=== PATIENT | male | born 2000 | race Caucasian/White ===

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

== ENCOUNTER 2020-05-15 13:34 | Emergency (ER) | payer MEDICAID ==
[~2020-05-15] VITALS: Ht 165.1 cm; Wt 66.2 kg
[2020-05-15 13:37] VITALS: BP 96/64
--- NOTE | 2020-05-15 13:40 | NUR ---
PT AMBULATED TO ER BED 11 WITH A STEADY GAIT.
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
--- NOTE | 2020-05-15 14:10 | NUR ---
DR WEST AT BEDSIDE FOR EVALUATION
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
--- NOTE | 2020-05-15 14:55 | NUR ---
PT BROUGHT BACK FROM CT VIA [facility].
[2020-05-15 15:15] VITALS: BP 96/64
--- NOTE | 2020-05-15 15:16 | NUR ---
Patient discharged with v/s stable. Written and verbal after care instructions given and explained. Patient alert, oriented and verbalized understanding of instructions. Ambulatory with steady gait. All questions addressed prior to discharge. ID band removed. Patient advised to follow up with PMD. Rx of acetaminophen 500mg tab q6hr PRN and naprosyn 500mg tab BID PRN for pain given. Patient educated on indication of medication including possible reaction and side effects. Opportunity to ask questions provided and answered.
== END 2020-05-15 15:16 | disposition home or self-care (01) ==
LOC: MED 13:34
DX: S93.692A Other sprain of left foot, initial encounter (principal); W18.39XA Other fall on same level, initial encounter; Y93.89 Activity, other specified; Y92.89 Other specified places as the place of occurrence of the external cause; Y99.8 Other external cause status; S63.601A Unspecified sprain of right thumb, initial encounter; S00.83XA Contusion of other part of head, initial encounter
CPT/HCPCS: 70486; 73070; 73140; 73620; 99284

== ENCOUNTER 2022-02-26 14:14 | Emergency (ER) | payer MEDICAID ==
[~2022-02-26] VITALS: Ht 165.1 cm; Wt 74.8 kg
[2022-02-26 14:28] VITALS: BP 127/99
--- NOTE | 2022-02-26 14:40 | NUR ---
PT AMBULATED TO ROOM 8
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
--- NOTE | 2022-02-26 14:58 | NUR ---
MD HALL AT BEDSIDE FOR EVALUATION
[2022-02-26] MEDS ORDERED: LIDOCAINE 1% 500 MG/ 50 ML VIAL INJ ONE (15:05)
[2022-02-26] MEDS ORDERED: BACITRACIN OINT 500 UNITS/GM PKT TP ONE (15:05)
[2022-02-26] MEDS ORDERED: LIDOCAINE MPF 1% 0 ML ONE (15:06)
[2022-02-26] MEDS ORDERED: LIDOCAINE MPF 1% 5 ML ONE (15:09)
[2022-02-26] MEDS ORDERED: LIDOCAINE MPF 1% 10 MG/ML VIAL INJ ONE (15:15)
[2022-02-26] MEDS ORDERED: IBUP-1842 PO (15:31)
[2022-02-26] MEDS ORDERED: BACTO TP (15:31)
[2022-02-26] MEDS ORDERED: CEPH500C16 PO (15:31)
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
--- NOTE | 2022-02-26 16:01 | NUR ---
The patient's care was reviewed and supervised by ED Agency Nurse 9, RN, RN.
== END 2022-02-26 15:57 | disposition home or self-care (01) ==
LOC: MED 14:14
DX: S71.132A Puncture wound without foreign body, left thigh, initial encounter (principal); Z79.1 Long term (current) use of non-steroidal anti-inflammatories (NSAID); Z79.2 Long term (current) use of antibiotics; Z91.030 Bee allergy status; W26.0XXA Contact with knife, initial encounter; Y93.89 Activity, other specified; Y92.89 Other specified places as the place of occurrence of the external cause; Y99.8 Other external cause status
CPT/HCPCS: 12001; 90471; 90715; 99283; J2001

== ENCOUNTER 2022-03-03 05:25 | Emergency (ER) | payer MEDICAID ==
[~2022-03-03] VITALS: Ht 167.6 cm; Wt 81.6 kg
[~2022-03-03 05:25] MED LIST: BACTO TP; CEPH500C16 PO; IBUP-1842 PO
[2022-03-03 05:30] VITALS: BP 113/60
--- NOTE | 2022-03-03 05:30 | NUR ---
TO BED AMBULATORY
[2022-03-03 05:49] VITALS: BP 113/60
--- NOTE | 2022-03-03 06:33 | NUR ---
EVAN PERERA ASSESSING PATIENT.
--- NOTE | 2022-03-03 06:49 | NUR ---
Patient discharged with v/s stable. Written and verbal after care instructions given and explained. Patient verbalized understanding. Ambulatory with steady gait. All questions addressed prior to discharge. Advised to follow up with PMD.
== END 2022-03-03 06:49 | disposition home or self-care (01) ==
LOC: MED 05:25
DX: S71.112D Laceration without foreign body, left thigh, subsequent encounter (principal); Z48.00 Encounter for change or removal of nonsurgical wound dressing; X58.XXXD Exposure to other specified factors, subsequent encounter
CPT/HCPCS: 99281

== ENCOUNTER 2022-12-09 23:59 | Emergency (ER) | payer MEDICAID ==
[~2022-12-09] VITALS: Ht 165.1 cm; Wt 77.1 kg
[2022-12-10 00:22] VITALS: BP 134/72; PULSE 88; RESP 16; TEMP 97.4; O2SAT 100
[2022-12-10] MEDS ORDERED: ACETAMINOPHEN EXTRA STRENGTH 500 MG TAB PO ONE (02:25)
[2022-12-10 02:28] VITALS: BP 134/72; PULSE 88; RESP 16; TEMP 97.4; O2SAT 100
== END 2022-12-10 02:28 | disposition home or self-care (01) ==
LOC: MED 23:59
DX: S01.01XA Laceration without foreign body of scalp, initial encounter (principal); W01.198A Fall on same level from slipping, tripping and stumbling with subsequent striking against other object, initial encounter; Y93.89 Activity, other specified; Y92.89 Other specified places as the place of occurrence of the external cause; Y99.8 Other external cause status
CPT/HCPCS: 99282; 99283

== ENCOUNTER 2022-12-17 19:19 | Emergency (ER) | payer MEDICAID ==
[~2022-12-17] VITALS: Ht 167.6 cm; Wt 77.1 kg
[2022-12-17 19:40] VITALS: BP 112/76; PULSE 93; RESP 18; TEMP 97.7; O2SAT 98
[2022-12-17 19:57] VITALS: BP 112/76; PULSE 93; RESP 18; TEMP 97.7; O2SAT 98
== END 2022-12-17 19:57 | disposition home or self-care (01) ==
LOC: MED 19:19
DX: S01.81XD Laceration without foreign body of other part of head, subsequent encounter (principal); Z48.02 Encounter for removal of sutures; X58.XXXD Exposure to other specified factors, subsequent encounter
CPT/HCPCS: 99281